=== PATIENT | male | born 2005 | race Two or more races ===

== ENCOUNTER 2023-10-07 05:50 | Inpatient (IN) | payer OTHER ==
[~2023-10-07] VITALS: Ht 177.8 cm; Wt 61.5 kg
[2023-10-07] MEDS: SODIUM CHLORIDE 0.9% 1,000 ML IV ONE (06:40)
[2023-10-07] MEDS: ONDANSETRON HCL 4 MG/2 ML VIAL IVP ONE (06:40)
[2023-10-07 06:53] LABS: HEMATOCRIT 49.7 % (41-53); HEMOGLOBIN 17.2 g/dL (13.5-17.5); MEAN CORPUSCULAR VOLUME 83 fL (80-100); RED BLOOD CELL COUNT(AUTO) 6.02 MIL/uL (4.50-5.90); WHITE BLOOD COUNT (AUTO) 7.9 K/uL (4.5-11.0)
[2023-10-07 06:54] LABS: BASOPHILS % (AUTO) 0.4 % (0.0-2.0); EOSINOPHILS % (AUTO) 0.9 % (1.0-6.0); LYMPHOCYTES # (AUTO) 2.4 K/uL (1.0-4.8); LYMPHOCYTES % (AUTO) 30.1 % (22.0-44.0); MEAN CORPUSCULAR HEMOGLOBIN 28.6 pg (26.0-34.0); MEAN CORPUSCULAR HGB CONC 34.7 G/dL (31.0-37.0); MONOCYTES # (AUTO) 0.7 K/uL (0.1-1.0); NEUTROPHILS # (AUTO) 4.7 K/uL (1.8-7.7); NEUTROPHILS % (AUTO) 59.6 % (40.0-70.0); PLATELET COUNT (AUTO) 179 K/uL (150-450)
[2023-10-07 07:03] LABS: ANION GAP 16 mmol/L (8-16); CALCIUM, TOTAL 10.6 mg/dL (8.8-10.5); CARBON DIOXIDE 22 mmol/L (22-29); CHLORIDE 97 mmol/L (98-107); CREATININE 0.66 mg/dL (0.60-1.30); GLOMERULAR FILTR. RATE CALC > 60 mL/min (>60); GLUCOSE,RANDOM 145 mg/dL (70-110); POTASSIUM 3.7 mmol/L (3.5-5.1); SODIUM SERUM 135 mmol/L (136-145); UREA NITROGEN, BLOOD 17 mg/dL (7-18)
[2023-10-07] MEDS ORDERED: DiphenhydrAMINE HCL 50 MG/ML VIAL ONE (07:56)
[2023-10-07] MEDS ORDERED: HALOPERIDOL LACTATE 5 MG/ML VIAL ONE (07:56)
[2023-10-07] MEDS: DiphenhydrAMINE HCL 50 MG/ML VIAL IVP ONE (08:44)
[2023-10-07] MEDS: HALOPERIDOL LACTATE 5 MG/ML VIAL IVP ONE (08:44)
[2023-10-07 08:57] LABS: FREE T4 (FREE THYROXINE) 17.59 ng/dL (0.76-1.46); THYROID STIMULATING HORMONE < 0.01 uIU/mL (0.36-3.74)
[2023-10-07 10:00] LABS: INFLUENZA A-RTPCR,COMBO NEGATIVE (NEGATIVE); INFLUENZA B-RTPCR,COMBO NEGATIVE (NEGATIVE); RESPIRATORY SYNCYTIAL VRS-PCR NEGATIVE (NEGATIVE); SARS COVID19 RTPCR, COMBO NEGATIVE (NEGATIVE)
[2023-10-07] MEDS: METOPROLOL TARTRATE 25 MG TABLET PO ONE (10:37)
[2023-10-07 11:12] LABS: PH,URINE DRUG SCREEN 5.5 (5.0-8.0)
[2023-10-07 11:19] LABS: ALCOHOL, URINE DRUG SCREEN NEGATIVE (NEGATIVE); AMPHET/METH SCREEN,URINE NEGATIVE (NEGATIVE); BARBITURATE SCREEN, URINE NEGATIVE (NEGATIVE); BENZODIAZEPINES SCREEN,URINE NEGATIVE (NEGATIVE); CANNABINOID SCREEN,URINE POSITIVE (NEGATIVE); COCAINE SCREEN,URINE NEGATIVE (NEGATIVE); METHADONE SCREEN, URINE NEGATIVE (NEGATIVE); OPIATE SCREEN,URINE NEGATIVE (NEGATIVE); PHENCYCLIDINE SCREEN,URINE NEGATIVE (NEGATIVE)
[2023-10-07] MEDS: METOPROLOL SUCCINATE 25 MG ER TABLET PO ONE (13:12)
[2023-10-07] MEDS ORDERED: ALBUTEROL SULFATE 2.5 MG/0.5 ML NEB SOLUTION NEB PRN (16:45)
[2023-10-07] MEDS ORDERED: ZOLPIDEM TARTRATE 5 MG TABLET PO PRN (16:45)
[2023-10-07] MEDS ORDERED: ONDANSETRON HCL 4 MG/2 ML VIAL IVP PRN (16:45)
[2023-10-07] MEDS ORDERED: MORPHINE SULFATE 2 MG/ML SYRINGE IVP PRN (16:45)
[2023-10-07] MEDS ORDERED: IPRATROPIUM BROMIDE 0.5 MG/2.5 ML NEB SOLUTION NEB PRN (16:45)
[2023-10-07] MEDS ORDERED: HYDROCODONE/ACETAMINOPHEN 5-325 MG TABLET PO PRN (16:45)
[2023-10-07] MEDS ORDERED: MAGNESIUM HYDROXIDE SUSPENSION 30 ML UDCUP PO PRN (16:45)
[2023-10-07] MEDS ORDERED: BISACODYL 10 MG RECTAL RECTAL SUPPOSITORY PR PRN (16:45)
[2023-10-07 17:00] VITALS: BP 145/75; PULSE 132; RESP 18; TEMP 99.8
[2023-10-07 19:18] VITALS: BP 146/72; PULSE 134; RESP 18; TEMP 98.1
[2023-10-07 19:56] VITALS: BP 140/70; PULSE 130; RESP 18; TEMP 98.2
[2023-10-07] MEDS: METOPROLOL TARTRATE 25 MG TABLET PO SCH (20:20)
[2023-10-07] MEDS: METHIMAZOLE 10 MG TABLET PO SCH (20:20)
[2023-10-07 23:38] VITALS: BP 138/87; PULSE 139; RESP 22; TEMP 101
[2023-10-07 23:56] VITALS: BP 138/87; PULSE 139; RESP 22; TEMP 101
[2023-10-08] MEDS: HEPARIN SODIUM,PORCINE 5,000 UNITS/ML VIAL SQ SCH
[2023-10-08] MEDS: ACETAMINOPHEN 325 MG TABLET PO PRN (00:25)
[2023-10-08 06:01] VITALS: BP 135/88; PULSE 125; RESP 20; TEMP 98.2
[2023-10-08 07:14] VITALS: BP 141/81; PULSE 129; RESP 18; TEMP 98.4
[2023-10-08] MEDS: PANTOPRAZOLE SODIUM 40 MG DR TABLET PO SCH (08:28)
[2023-10-08 11:59] VITALS: BP 134/84; PULSE 119; RESP 18; TEMP 98
[2023-10-08 16:18] VITALS: BP 147/68; PULSE 117; RESP 18; TEMP 100.2
== END 2023-10-08 17:20 | disposition left against medical advice (07) | DRG 427 ==
LOC: EMS 05:52 → 5N 13:58
PROVIDERS: ADMIT Hospitalist; ATTEND Hospitalist
DX: E05.01 Thyrotoxicosis with diffuse goiter with thyrotoxic crisis or storm (principal); F10.90 Alcohol use, unspecified, uncomplicated; R11.2 Nausea with vomiting, unspecified; Z20.822 Contact with and (suspected) exposure to COVID-19; Z53.21 Procedure and treatment not carried out due to patient leaving prior to being seen by health care provider
CPT/HCPCS: 0241U; 80048; 80307; 84439; 84443; 85025; 93005; 99285; J1200; J1630; J1644; J2405; J7030